=== PATIENT | male | born 1985 ===

== ENCOUNTER 2018-08-26 22:55 | Emergency (ER) | payer SELFPAY ==
[2018-08-26 23:10] VITALS: TEMP 98.4; O2SAT 99
[2018-08-26] MEDS ORDERED: Sodium Chloride 0.9% 1,000 ML IV ONE (23:31)
[2018-08-26 23:40] LABS: BASO # 0.1 K/uL (0.0-0.2); BASO % 1.2 % (0.0-2.0); EOS # 0.2 K/uL (0.0-0.7); EOS % 2.9 % (0.0-4.0); HEMOGLOBIN 16.8 g/dL (12.0-18.0); LYMPH # 2.6 K/uL (1.0-4.3); LYMPH % 42.4 % (20.0-40.0); MEAN CELL VOLUME 89.3 fL (80.0-94.0); MEAN CORPUSCULAR HEMOGLOBIN 31.1 pg (27.0-31.0); MEAN CORPUSCULAR HGB CONC 34.9 g/dL (33.0-37.0); MEAN PLATELET VOLUME 8.3 fL (7.2-11.7); MONO # 0.4 K/uL (0.0-0.8); MONO % 6.9 % (0.0-10.0); NEUT # 2.9 K/uL (1.8-7.0); NEUT % 46.6 % (50.0-75.0); NRBC % 0.2 % (0.0-2.0); RBC 5.4 Mil/uL (4.40-5.90); RED CELL DISTRIBUTION WIDTH 12.8 % (11.5-14.5); WHITE BLOOD COUNT 6.2 K/uL (4.8-10.8)
[2018-08-26] MEDS ORDERED: Sodium Chloride 0.9% 1,000 ML ONE (23:40)
--- NOTE | 2018-08-26 23:40 | C.PDOC ---
History Of Present Illness 32 year old male presents to the ED complaining of chest tightness for 1 to 2 hours. Reports shortness of breath. Denies any nausea, vomiting, fever, diaphoresis, lightheadedness, or cough. Time Seen by Provider: 08/26/18 23:15 Chief Complaint (Nursing): Chest Pain History Per: Patient History/Exam Limitations: no limitations Onset/Duration Of Symptoms: Hrs Current Symptoms Are (Timing): Still Present Severity: Mild Pain Scale Rating Of: 4 Quality: Dull, Tightness Associated Symptoms: denies: Nausea, Dyspnea, Diaphoresis Modifying Factors: None Exacerbating Factors: None Alleviating Factors: None Recent travel outside of the [place]: No Additional History Per: Patient Past Medical History Vital Signs: Last Vital Signs Temp 98.4 F 08/26/18 23:07 Pulse 91 H 08/26/18 23:07 Resp 20 08/26/18 23:07 BP 161/101 H 08/26/18 23:07 Pulse Ox 99 08/26/18 23:07 Family History: States: Unknown Family Hx - Social History Hx Alcohol Use: Yes Hx Substance Use: No - Immunization History Hx Tetanus Toxoid Vaccination: No Hx Influenza Vaccination: No Hx Pneumococcal Vaccination: No Review Of Systems Except As Marked, All Systems Reviewed And Found Negative. Constitutional: Negative for: Fever, Sweats Cardiovascular: Positive for: Chest Pain. Negative for: Light Headedness Respiratory: Positive for: Shortness of Breath. Negative for: Cough Gastrointestinal: Negative for: Nausea, Vomiting Musculoskeletal: Negative for: Neck Pain, Shoulder Pain Skin: Negative for: Rash, Lesions Neurological: Negative for: Weakness, Incoordination, Change in Speech Psych: Negative for: Anxiety, Depression Physical Exam - Physical Exam Appears: Non-toxic Skin: Warm, Dry Head: Normacephalic Eye(s): bilateral: Normal Inspection Nose: Normal Oral Mucosa: Moist Neck: Normal ROM, Supple Chest: Symmetrical Cardiovascular: Rhythm Regular Respiratory: Normal Breath Sounds, No Rales, No Rhonchi, No Wheezing Gastrointestinal/Abdominal: No Tenderness Extremity: Normal ROM, No Pedal Edema Neurological/Psych: Oriented x3, Normal Speech Gait: Steady ED Course And Treatment - Laboratory Results Result Diagrams: 08/26/18 23:36 08/26/18 23:36 ECG: Interpreted By Me, Viewed By Me ECG Rhythm: Sinus Rhythm ECG Interpretation: Normal, No Acute Changes Interpretation Of ECG: Sinus rhythm with PVC., no acute changes. Rate From EC O2 Sat by Pulse Oximetry: 99 (RA) Pulse Ox Interpretation: Normal - Radiology CXR: Interpreted by Me CXR Interpretation: Yes: No Acute Disease. No: Infiltrates Medical Decision Making Medical Decision Making: Plan - EKG - Bloodwork - CXR - Toradol 30mg IVP - IV fluids Disposition Counseled Patient/Family Regarding: Diagnosis - Disposition Referrals: [facility] [Outside] Disposition: HOME/ ROUTINE Disposition Time: :25 Condition: STABLE Prescriptions: RX: Naproxen 375 mg PO TIDPC #14 tablet Instructions: Costochondritis (DC) Forms: [employer] (Malay) - POA Present On Arrival: None - Clinical Impression Clinical Impression: Chest discomfort, Chest wall pain - Scribe Statement The provider has reviewed the documentation as recorded by the Scribe Kenna Britton All medical record entries made by the Scribe were at my direction and personally dictated by me. I have reviewed the chart and agree that the record accurately reflects my personal performance of the history, physical exam, medical decision making, and the department course for this patient. I have also personally directed, reviewed, and agree with the discharge instructions and disposition.
[2018-08-26 23:54] LABS: ALB/GLOB RATIO 1.3 (1.0-2.1); ALBUMIN 4.5 g/dL (3.5-5.0); BLOOD UREA NITROGEN 14 mg/dL (9-20); CALCIUM 9.2 mg/dl (8.6-10.4); GFR NON-AFRICAN AMERICAN > 60
[2018-08-26 23:56] LABS: ALT/SGPT 49 U/L (21-72); AST/SGOT 39 U/L (17-59)
[2018-08-27 00:04] LABS: INR 1.2; PROTHROMBIN TIME 12.7 SECONDS (9.7-12.2)
[2018-08-27 00:37] VITALS: RESP 18
[2018-08-27 00:59] VITALS: BP 115/89; PULSE 82
--- NOTE | 2018-08-27 09:27 | RAD ---
Date of service: 08/27/2018 HISTORY: chest pain COMPARISON: No prior. TECHNIQUE: Chest PA and lateral FINDINGS: LUNGS: No active pulmonary disease. PLEURA: No significant pleural effusion identified. No pneumothorax apparent. CARDIOVASCULAR: No aortic atherosclerotic calcification present. Normal cardiac size. No pulmonary vascular congestion. OSSEOUS STRUCTURES: No significant abnormalities. VISUALIZED UPPER ABDOMEN: Normal. OTHER FINDINGS: None. IMPRESSION: No active disease.
== END 2018-08-27 01:49 | disposition home or self-care (01) ==
LOC: C.ER 22:55
DX: R07.89 Other chest pain (principal)
CPT/HCPCS: 71046; 80053; 84484; 85025; 85378; 85610; 85730; 96361; 96374; 99285; J1885; J7030